=== PATIENT | male | born 1980 | race Caucasian/White ===

== ENCOUNTER 2024-02-22 19:36 | Emergency (ER) | payer OTHER ==
[~2024-02-22] VITALS: Ht 177.8 cm; Wt 81.6 kg
[2024-02-22 19:45] VITALS: BP_SYST 138; PULSE 63; RESP 17; TEMP 98.4; O2SAT 98
[2024-02-22] MEDS ORDERED: METH-634 PO (20:49)
[2024-02-22 21:35] VITALS: BP_SYST 138; PULSE 63; RESP 17; TEMP 98.4; O2SAT 98
== END 2024-02-22 21:37 | disposition home or self-care (01) ==
LOC: SED 19:36
DX: S39.011A Strain of muscle, fascia and tendon of abdomen, initial encounter (principal); M54.50 Low back pain, unspecified; Z88.6 Allergy status to analgesic agent; Z88.5 Allergy status to narcotic agent; Z79.2 Long term (current) use of antibiotics; X50.0XXA Overexertion from strenuous movement or load, initial encounter; Y93.89 Activity, other specified; Y92.89 Other specified places as the place of occurrence of the external cause; Y99.8 Other external cause status
CPT/HCPCS: 99283